=== PATIENT | female | born 1930 | race Two or more races ===

== ENCOUNTER 2017-02-19 13:30 | Emergency (ER) | payer MEDICARE, OTHER ==
[~2017-02-19] VITALS: Ht 152.4 cm; Wt 59.0 kg
[~2017-02-19 13:30] MED LIST: NEXIUM20 MG ORAL
[2017-02-19] MEDS ORDERED: Morphine Sulfate 2mg/ml Inj IVP ONE (14:00)
--- NOTE | 2017-02-19 14:26 | Emergency Room Report ---
History of Present Illness General Chief Complaint: Abdominal Pain Source: Patient, EMS Present Illness HPI Patient presents with severe RUQ pain for 2-3 days. Constant. She states it is her gastritis pain. Vomiting today, no blood. Loose stools today, not melena. Denies fevers or chills. Unknown what type of work up in the past. Pain rated 6/10, constant, RUQ, not radiate, burning pressure. No CP, cough, sore throat, joint pain. Hard of hearing and hearing aid L. Weakness of R eyelid, unknown how long. Prior emily. Allergies: Coded Allergies: No Known Allergies (Unverified , 02/19/17) Patient History Past Medical History: see triage record Past Surgical History: emily Social History: Denies: smoking, alcohol use Social History Narrative from home Last Menstrual Period: Post Reviewed Nursing Documentation: PMH: Agreed, PSxH: Agreed Nursing Documentation-PMH Hx Hypertension: Yes Review of Systems All Other Systems: negative except mentioned in HPI Physical Exam Vital Signs Date Time Temp Pulse Resp B/P (MAP) Pulse Ox O2 Delivery O2 Flow Rate FiO2 02/19/17 13:26 97.7 65 18 166/76 96 Room Air Sp02 EP Interpretation: reviewed, normal General Appearance: GCS 15, mild distress Head: normocephalic, atraumatic Eyes: right eye other - Ptosis, bilateral eye PERRL, bilateral eye scleral icterus ENT: moist mucus membranes, other - hearing aid L ear Neck: supple Respiratory: lungs clear, normal breath sounds Cardiovascular #1: regular rate, rhythm Cardiovascular #2: 2+ radial (R) Gastrointestinal: normal inspection, no mass, non-distended, no rebound, guarding - RUQ, tenderness Musculoskeletal: back normal, gait/station normal, normal range of motion Neurologic: alert, oriented x3, motor strength/tone normal, DTRs symmetric, sensory intact, speech normal, other - decreased hearing, ptosis R eye Psychiatric: mood/affect normal Skin: warm/dry, other - jaundice Medical Decision Making Diagnostic Impression: Primary Impression: Abdominal pain Qualified Codes: R10.11 - Right upper quadrant pain Additional Impressions: UTI (urinary tract infection) Qualified Codes: N30.00 - Acute cystitis without hematuria Total bilirubin, elevated Ptosis Qualified Codes: H02.401 - Unspecified ptosis of right eyelid ER Course Patient presents with jaundice and RUQ pain. DDx: cholelithiasis, cholecystitis , obstructive jaundice amongst others. Urgent evaluation with CT abdomen, labs , EKG. Treatment with IV hydration, pepcid and analgesia. Need to exclude sepsis. Elevated bili, alk phos, AST and wbc. Antibiotics begun. CT pending. Improved with treatment. Decreased pain but still mild discomfort with exam. No guarding or rebound. Discussed with Dr. Forte. CT signed out to Dr. Morgan. Laboratory Tests Test 02/19/17 14:00 02/19/17 15:10 Sodium Level 142 MMOL/L (136-145) Potassium Level 4.2 MMOL/L (3.5-5.1) Chloride Level 109 MMOL/L (98-107) H Carbon Dioxide Level 19 MMOL/L (21-32) L Anion Gap 14 mmol/L (5-15) Blood Urea Nitrogen 24 mg/dL (7-18) H Creatinine 0.7 MG/DL (0.55-1.30) Estimate Glomerular Filtration Rate mL/min (>60) Glucose Level 159 MG/DL (74-106) H Calcium Level 9.5 MG/DL (8.5-10.1) Total Bilirubin 9.3 MG/DL (0.2-1.0) H Direct Bilirubin 0.9 MG/DL (0.0-0.3) H Aspartate Amino Transferase (AST) 104 U/L (15-37) H Alanine Aminotransferase (ALT) 39 U/L (12-78) Alkaline Phosphatase 143 U/L (46-116) H Troponin I 0.000 ng/mL (0.000-0.056) Total Protein 7.0 G/DL (6.4-8.2) Albumin 3.6 G/DL (3.4-5.0) Globulin 3.4 g/dL Albumin/Globulin Ratio 1.1 (1.0-2.7) Lipase 262 U/L (73-393) White Blood Count 18.2 K/UL (4.8-10.8) H Red Blood Count 2.55 M/UL (4.20-5.40) L Hemoglobin 8.8 G/DL (12.0-16.0) L Hematocrit 19.6 % (37.0-47.0) L Mean Corpuscular Volume 77 FL (80-99) L Mean Corpuscular Hemoglobin 34.4 PG (27.0-31.0) H Mean Corpuscular Hemoglobin Concent 44.8 G/DL (32.0-36.0) H Red Cell Distribution Width 9.9 % (11.6-14.8) L Platelet Count 201 K/UL (150-450) Mean Platelet Volume 7.9 FL (6.5-10.1) Neutrophils (%) (Auto) % (45.0-75.0) Lymphocytes (%) (Auto) % (20.0-45.0) Monocytes (%) (Auto) % (1.0-10.0) Eosinophils (%) (Auto) % (0.0-3.0) Basophils (%) (Auto) % (0.0-2.0) Differential Total Cells Counted 100 Neutrophils % (Manual) 69 % (45-75) Lymphocytes % (Manual) 13 % (20-45) L Monocytes % (Manual) 12 % (1-10) H Eosinophils % (Manual) 4 % (0-3) H Basophils % (Manual) 2 % (0-2) Band Neutrophils 0 % (0-8) Nucleated Red Blood Cells 16 /100 WBC Platelet Estimate Adequate Platelet Morphology Normal Polychromasia 1+ Anisocytosis 1+ Microcytosis 2+ Macrocytosis 1+ Prothrombin Time 11.3 SEC (9.30-11.50) Prothrombin Time INR 1.1 (0.9-1.1) PTT 23 SEC (23-33) Urine Color Brown Urine Appearance Slightly cloudy Urine pH 5 (4.5-8.0) Urine Specific [place] 1.025 (1.005-1.035) Urine Protein 3+ (NEGATIVE) H Urine Glucose (UA) Negative (NEGATIVE) Urine Ketones 1+ (NEGATIVE) H Urine Occult Blood 3+ (NEGATIVE) H Urine Nitrite Positive (NEGATIVE) H Urine Bilirubin 2+ (NEGATIVE) H Urine Ictotest Negative Urine Urobilinogen 12 MG/DL (0.0-1.0) H Urine Leukocyte Esterase 2+ (NEGATIVE) H Urine RBC 2-4 /HPF (0 - 2) H Urine WBC 2-4 /HPF (0 - 2) Urine Squamous Epithelial Cells Few /LPF (NONE/OCC) Urine Amorphous Sediment Moderate /LPF (NONE) H Urine Bacteria Moderate /HPF (NONE) H Urine Mucus Moderate /LPF (NONE/OCC) H Urine HCG, Qualitative Negative EKG Diagnostic Results Rate: normal Rhythm: NSR ST Segments: no acute changes - lvh Rhythm Strip Diag. Results EP Interpretation: yes Rhythm: NSR, no PVC's, no ectopy CT/MRI/US Diagnostic Results CT/MRI/US Diagnostic Results : Imaging Test Ordered: abd/pelvis contrast Impression Impression: Atelectasis in the left lower lobe. Diverticulosis. Osteopenia. Bilateral renal cysts. Previous cholecystectomy. Mildly dilated common bile duct, likely related to the cholecystectomy. Smith catheter curled in the bladder. Calcifications in the buttocks, likely either related to injections or previous trauma. Last Vital Signs Date Time Temp Pulse Resp B/P (MAP) Pulse Ox O2 Delivery O2 Flow Rate FiO2 02/19/17 17:27 97.7 64 18 142/57 95 Room Air Status: improved Disposition: ER [facility] - stable for transfer Condition: Serious Melecio Mendoza M.D. Feb 19, 2017 14:26
[2017-02-19 14:42] LABS: ANION GAP 14 mmol/L (5-15); CALCIUM 9.5 MG/DL (8.5-10.1); CARBON DIOXIDE 19 MMOL/L (21-32); CHLORIDE 109 MMOL/L (98-107); CREATININE 0.7 MG/DL (0.55-1.30); POTASSIUM 4.2 MMOL/L (3.5-5.1); SODIUM 142 MMOL/L (136-145)
[2017-02-19 14:53] LABS: ALANINE AMINOTRANSFERASE 39 U/L (12-78); ALBUMIN/GLOBULIN RATIO 1.1 (1.0-2.7); ASPARTATE AMINO TRANSFERASE 104 U/L (15-37); LIPASE 262 U/L (73-393)
[2017-02-19 14:55] LABS: BILIRUBIN,DIRECT 0.9 MG/DL (0.0-0.3)
[2017-02-19 14:57] VITALS: BP 109/49
[2017-02-19 15:42] LABS: APPEARANCE,URINE SLIGHTLY CLOUDY; KETONES,URINE 1+ (NEGATIVE); LEUKOCYTE ESTERASE ,URINE 2+ (NEGATIVE); MEAN PLATELET VOLUME 7.9 FL (6.5-10.1); NITRITE,URINE POSITIVE (NEGATIVE); PH,URINE 5 (4.5-8.0); PLATELET COUNT 201 K/UL (150-450); PROTEIN,URINE 3+ (NEGATIVE); RED CELL DISTRIBUTION WIDTH 9.9 % (11.6-14.8); UROBILINOGEN,URINE 12 MG/DL (0.0-1.0); WHITE BLOOD COUNT 18.2 K/UL (4.8-10.8)
[2017-02-19 15:48] LABS: INR 1.1 (0.9-1.1); PROTHROMBIN TIME 11.3 SEC (9.30-11.50)
[2017-02-19 15:51] LABS: AMORPHOUS SEDIMENT,UR MODERATE /LPF; BACTERIA,URINE MODERATE /HPF; ICTOTEST NEGATIVE; MUCUS,URINE MODERATE /LPF (NONE/OCC); SQUAMOUS EPITHELIAL CELL,UR FEW /LPF (NONE/OCC)
[2017-02-19] MEDS ORDERED: Cefepime HCl 1 GM in D5W 55 ML IVPB ONE (16:00)
[2017-02-19 16:11] LABS: BAND NEUTROPHILS % (MANUAL) 0 % (0-8); BASOPHILS % (MANUAL) 2 % (0-2); EOSINOPHILS % (MANUAL) 4 % (0-3); LYMPHOCYTES % (MANUAL) 13 % (20-45); NEUTROPHILS % (MANUAL) 69 % (45-75); NUCLEATED RED BLOOD CELLS 16 /100 WBC; PLATELET ESTIMATE ADEQUATE; PLATELET MORPHOLOGY NORMAL; TOTAL CELLS COUNTED 100
[2017-02-19 16:12] LABS: ANISOCYTOSIS 1+; MACROCYTES 1+; MICROCYTES 2+; POLYCHROMASIA 1+
[2017-02-19] MEDS ORDERED: Cefepime 1gm vial ONE (16:15)
[2017-02-19 17:27] VITALS: BP 142/57
[2017-02-19 19:15] VITALS: BP 106/51
[2017-02-19 21:00] VITALS: BP 142/79
[2017-02-19 21:10] VITALS: BP 142/79
--- NOTE | 2017-02-20 08:54 | Diagnostic Imaging Report ---
Indication: ABD PAIN Technique: CT scan of the abdomen and pelvis was performed from the diaphragms to the symphysis pubis with intravenous contrast material and oral contrast material. Biphasic liver scanning was employed. 5 mm sections were generated. Axial, coronal, and sagittal images are presented. Dose: Total Dose Length Product - DLP [address] Dose Index - CTDIvol(s) 12.57 mGy. Automated exposure control was utilized for dose reduction. Comparison: None Findings: There is some atelectasis in the left lower lobe. The liver is mildly prominent. There is a dilated common bile duct. Gallbladder is absent. The spleen is unremarkable. The pancreas is normal. Adrenal glands are unremarkable. Focal low density lesions are noted in the kidneys bilaterally consistent with cysts. The aorta is calcified. Retroperitoneum is free of adenopathy. The bowel is normal caliber. A Smith catheter is curled in the bladder. There are diverticula of the colon. The bones are osteopenic. Degenerative changes noted in the spine. There are dense calcifications in the buttocks bilaterally. Impression: Atelectasis in the left lower lobe. Diverticulosis. Osteopenia. Bilateral renal cysts. Previous cholecystectomy. Mildly dilated common bile duct, likely related to the cholecystectomy. Smith catheter curled in the bladder. Calcifications in the buttocks, likely either related to injections or previous trauma. The above report is concordant with preliminary reading by [employer] . The CT scanner at [facility] is accredited by the [employer] and the scans are performed using protocols designed to limit radiation exposure to as low as reasonably achievable to attain images of sufficient resolution adequate for diagnostic evaluation.
[2017-02-20 15:14] LABS: MEAN CORPUSCULAR VOLUME 93 FL (80-99); RED BLOOD COUNT 3.36 M/UL (4.20-5.40)
[2017-02-21 13:56] LABS: OTHERS PATHOLOGIST COMMENT
--- NOTE | 2017-02-24 11:03 | Cardiology Report ---
APPROVED REPORT EKG Measurement Heart [id number] [id number] Normal sinus rhythm Left ventricular hypertrophy with repolarization abnormality Abnormal ECG
== END 2017-02-19 21:10 | disposition short-term general hospital (02) ==
LOC: EDBD 13:30 → EMR 14:02
DX: N30.00 Acute cystitis without hematuria (principal); H02.401 Unspecified ptosis of right eyelid; I10 Essential (primary) hypertension; Z90.49 Acquired absence of other specified parts of digestive tract
CPT/HCPCS: 36415; 74177; 80053; 81003; 81025; 82248; 83690; 84484; 85007; 85025; 85610; 85730; 86850; 86870; 86900; 86901; 87086; 93005; 96374; 96375; 99285; J0692; J2270; J2405; Q9967; S0028